=== PATIENT | male | born 1985 | race African-American/Black ===

== ENCOUNTER 2022-02-13 16:15 | Emergency (ER) | payer OTHER, SELFPAY ==
[2022-02-13 16:48] VITALS: BP 140/87; PULSE 63; RESP 20; TEMP 37; O2SAT 99; BMI 25.7
--- NOTE | 2022-02-13 16:51 | ED_ITS ---
HPI - Neck Pain/Injury General Chief Complaint: Neck Pain/Injury Stated Complaint: Pinched nerve Related Data Allergies Allergy/AdvReac Type Severity Reaction Status Date / Time morphine [MORPHINE] Allergy Unknown i burn it Unverified 11/18/19 19:44 off to fast [facility] Social History Social History Advance Directives: No Advance Directives Information Provided: No Physical Exam Vital Signs: Vital Signs: Last Vital Signs Temp 98.6 F 02/13/22 16:48 Pulse 63 02/13/22 16:48 Resp 20 02/13/22 16:48 BP 140/87 H 02/13/22 16:48 Pulse Ox 99 02/13/22 16:48 O2 Del Method 02/13/22 16:48 Body Mass Index Course Course Course Course Narrative: This is a rapid medical exam. Deferred additional HPI, ROS, PE to primary provider. 36 yo male healthy here with left sided neck pain x 1 yr worsened in
--- NOTE | 2022-02-13 16:51 | ED.NECK ---
HPI - Neck Pain/Injury General Chief Complaint: Neck Pain/Injury Stated Complaint: Pinched nerve Related Data Allergies Allergy/AdvReac Type Severity Reaction Status Date / Time morphine [MORPHINE] Allergy Unknown i burn it Unverified 11/18/19 19:44 off to fast [facility] Social History Social History Advance Directives: No Advance Directives Information Provided: No Physical Exam Vital Signs: Vital Signs: Last Vital Signs Temp 98.6 F 02/13/22 16:48 Pulse 63 02/13/22 16:48 Resp 20 02/13/22 16:48 BP 140/87 H 02/13/22 16:48 Pulse Ox 99 02/13/22 16:48 O2 Del Method 02/13/22 16:48 BMI result Body Mass Index 25.7 Course Course Course Narrative: This is a rapid medical exam. Deferred additional HPI, ROS, PE to primary provider. 36 yo male healthy here with left sided neck pain x 1 yr worsened in last 2 months with radiation to the trapezius. No injury or trauma. Patient has no primary care doctor. He does have insurance but has not been able to establish a primary care doctor states I am to busy with work . No numbness, tingling, weakness in the upper extremities. Discharge Plan Discharge Clinical Impression: Neck pain Patient Disposition: Elopement Interventions: ED Discharge Assessment Last Done: 02/13/22 19:50 Discharge Date/Time: 02/13/22 21:18
--- NOTE | 2022-02-13 19:49 | PC.NURSE ---
pt called twice to [facility] no answer
--- NOTE | 2022-02-13 20:52 | PC.NURSE ---
pt not in waiting room to do vitals and reassessment at this time. 2051
== END 2022-02-13 21:18 | disposition left against medical advice (07) ==
PROVIDERS: Emergency Provider Emergency Medicine
DX: M54.2 Cervicalgia (principal)
CPT/HCPCS: 99281; 99282